=== PATIENT | male | born 1955 | race American Indian/Alaskan Native ===

== ENCOUNTER 2016-11-16 14:57 | Emergency (ER) | payer OTHER ==
[2016-11-16 15:12] VITALS: BP 141/104
[2016-11-16] MEDS ORDERED: cefTRIAXone 1,000 MG in Lidocaine 1% 4 ML IM ONE (15:52)
--- NOTE | 2016-11-16 15:58 | EDM.PDOC ---
ED HPI GENERAL MEDICAL PROBLEM - General Chief Complaint: Skin Complaint Stated Complaint: CYST /LT SIDE ABDOMINAL PAIN Time Seen by Provider: 11/16/16 15:24 Source of Information: Reports: Patient History Limitations: Reports: No Limitations - History of Present Illness INITIAL COMMENTS - FREE TEXT/NARRATIVE: History of present illness: Patient states that a week ago he was having intercourse and felt some burning from rubbing on his left testicle and left inner thigh. He has since become an ulcer and is very painful. He denies any fevers or chills, difficulty urinating or with bowel movements. Review of systems: As per history of present illness and below otherwise all systems reviewed and negative. Past medical history: As per history of present illness and as reviewed below otherwise noncontributory. Surgical history: As per history of present illness and as reviewed below otherwise noncontributory. Social history: No reported history of drug or alcohol abuse. Family history: As per history of present illness and as reviewed below otherwise noncontributory. Physical exam: General: Well developed, well nourished in NAD HEENT: Atraumatic, normocephalic, pupils reactive, negative for conjunctival pallor or scleral icterus, mucous membranes moist, throat clear, neck supple, nontender, trachea midline. Lungs: Clear to auscultation, breath sounds equal bilaterally, chest nontender. Heart: S1S2, regular, negative for clicks, rubs, or JVD. Abdomen: Soft, nondistended, patient has a 1 cm x 1 cm tender indurated lesion in the lateral trunk that is firm. There is no fluctuance or drainage.. Negative for masses or hepatosplenomegaly. Negative for costovertebral tenderness. Pelvis: Stable nontender. Genitourinary: Patient has macerated lesion on his left inner thigh and the lateral wall of his left scrotum. There is serous drainage no purulent drainage. Patient has no swelling, erythema or tenderness of his perineum. Rectal: Deferred. Extremities: Atraumatic, negative for cords or calf pain. Neurovascular unremarkable. Neuro: Awake, alert, oriented. Cranial nerves II through XII unremarkable. Cerebellum unremarkable. Motor and sensory unremarkable throughout. Exam nonfocal. Diagnostics: []Wound culture taken from the scrotal wound Therapeutics: []Ceftriaxone given in the ED Impression: []Ulceration with cellulitis left inner thigh and left scrotal wall Plan: []Bactrim twice a day for 10 days keep area clean and dry follow-up with primary care in 2 days. Definitive disposition and diagnosis as appropriate pending reevaluation and review of above. left back area Pain Score (Numeric/FACES): 10 - Related Data Allergies Allergy/AdvReac Type Severity Reaction Status Date / Time No Known Allergies Allergy Verified 11/16/16 15:09 Home Meds: Home Meds Sulfamethoxazole/Trimethoprim [Bactrim Ds Tablet] 1 each PO BID #20 tablet 11/16 [Rx] Past Medical History HEENT History: Reports: None Cardiovascular History: Reports: None Respiratory History: Reports: None Gastrointestinal History: Reports: None Genitourinary History: Reports: None Musculoskeletal History: Reports: None Neurological History: Reports: Seizure Psychiatric History: Reports: None Endocrine/Metabolic History: Reports: None Hematologic History: Reports: None Immunologic History: Reports: None Oncologic (Cancer) History: Reports: None Dermatologic History: Reports: None - Infectious Disease History Infectious Disease History: Reports: None - Past Surgical History Head Surgeries/Procedures: Reports: None Social & Family History - Family History Family Medical History: Noncontributory - Tobacco Use Smoking Status *Q: Never Smoker - Caffeine Use Caffeine Use: Reports: Coffee - Recreational Drug Use Recreational Drug Use: No ED ROS GENERAL - Review of Systems Review Of Systems: See Below ED EXAM, SKIN/RASH Exam: See Below (See history of present illness) Course - Vital Signs Last Recorded V/S: Last Vital Signs Temp 37.1 C 11/16/16 15:09 Pulse 86 11/16/16 15:09 Resp 16 11/16/16 15:09 BP 141/104 H 11/16/16 15:09 Pulse Ox 96 11/16/16 15:09 - Orders/Labs/Meds Orders: Active Orders 24 hr Category Date Time Status CULTURE WOUND [RM] Stat Lab 11/16/16 16:08 Received Meds: Medications Discontinued Medications Generic Name Dose Route Start Last Admin Trade Name Freq PRN Reason Stop Dose Admin Ceftriaxone Sodium 1,000 mg/ 4 mls @ 4 mls/sec 11/16/16 15:52 11/16/16 16:22 Lidocaine HCl IM 11/16/16 15:53 4 mls/sec ONETIME ONE Administration Departure - Departure Time of Disposition: 16:45 Disposition: Home, Self-Care 01 Condition: Good Clinical Impression: Scrotum, abscess Skin ulcer of left thigh Qualifiers: Non-pressure ulcer stage: limited to breakdown of skin Qualified Code(s): L97.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 This information is to outline your options for follow-up care. We provide all patients seen in our emergency department with a follow-up referral. The need for follow-up, as well as the timing and circumstances, are variable depending upon the specifics of your emergency department visit. If you don't have a primary care physician on staff, we will provide you with a referral. We always advise you to contact your personal physician following an emergency department visit to inform them of the circumstance of the visit and for follow-up with them and/or the need for any referrals to a consulting specialist. The emergency department will also refer you to a specialist when appropriate. This referral assures that you have the opportunity for follow-up care with a specialist. All of these measure are taken in an effort to provide you with optimal care, which includes your follow-up. Under all circumstances we always encourage you to contact your private physician who remains a resource for coordinating your care. When calling for follow-up care, please make the office aware that this follow-up is from your recent emergency room visit. If for any reason you are refused follow-up, please contact the [facility] Emergency Department at and asked to speak to the emergency department charge nurse. Bactrim 2 times a day for 10 days, keep the area of the scrotum and thigh dry and clean. Follow up with primary care in 2-3 days for wound check. [facility] [address] [place] [phone] - My Orders Last 24 Hours: My Active Orders 11/16/16 16:08 CULTURE WOUND [RM] Stat - Assessment/Plan Last 24 Hours: My Active Orders 11/16/16 16:08 CULTURE WOUND [RM] Stat
== END 2016-11-16 16:45 | disposition home or self-care (01) ==
LOC: MW.ED 14:57 → EEVIPCON 14:57 → MW.ED 16:45
DX: L97.121 Non-pressure chronic ulcer of left thigh limited to breakdown of skin (principal); N49.2 Inflammatory disorders of scrotum
CPT/HCPCS: 87070; 96372; 99283; J0696; 87077; 87186